=== PATIENT | male | born 1980 | race African-American/Black ===

== ENCOUNTER 2018-05-29 16:04 | Emergency (ER) | payer OTHER ==
[~2018-05-29] VITALS: Ht 175.3 cm; Wt 174.6 kg
[2018-05-29 17:00] VITALS: BP 161/101
[2018-05-29] MEDS ORDERED: NAPROXEN 500 MG TABLET PO STA (17:07)
[2018-05-29] MEDS ORDERED: HYDROcodone/APAP 5/325MG 1 TAB TABLET PO ONE (17:15)
[2018-05-29] MEDS ORDERED: AMOXICILLIN 250 MG CAPSULE. PO ONE (17:15)
[2018-05-29] MEDS ORDERED: AMOX500T PO (17:24)
[2018-05-29] MEDS ORDERED: TRAM50TA PO (17:24)
--- NOTE | 2018-05-29 17:24 | PHYS DOC ---
Adult General Chief Complaint Chief Complaint: DENTAL PROBLEM HPI HPI Patient is a 37 year old male with no significant medical history who presents today complaining of 10 out of 10 throbbing dental pain that began 2 weeks ago. Patient states he has been trying [id number] pain relievers with no relief. He states he does not have a dentist. Denies any fever or trismus. Review of Systems Review of Systems Constitutional: Denies fever or chills [] HENT: Reports dental pain. Denies nasal congestion or sore throat [] Musculoskeletal: Denies back pain or joint pain [] Integument: Denies rash or skin lesions [] Neurologic: Denies headache, focal weakness or sensory changes [] All other systems were reviewed and found to be within normal limits, except as documented in this note. Current Medications Current Medications Current Medications Medications (Trade) Dose Ordered Sig/Larissa Start Time Stop Time Status Last Admin Dose Admin Acetaminophen/ Hydrocodone Bitart (Lortab 5/325) 2 tab 1X ONCE 05/29/18 17:15 05/29/18 17:16 UNV Amoxicillin (Amoxil) 500 mg 1X ONCE 05/29/18 17:15 05/29/18 17:16 UNV Naproxen (Naprosyn) 500 mg 1X STAT 05/29/18 17:07 05/29/18 17:08 UNV Physical Exam Physical Exam Constitutional: Well developed, well nourished, no acute distress, non-toxic appearance. [] HENT: Normocephalic, atraumatic, bilateral external ears normal, oropharynx moist, no oral exudates, nose normal. [] Scattered dental caries throughout his teeth. Missing a couple teeth on the right upper gum. No dental abscess noted. Some of his teeth appear infected Skin: Warm, dry, no erythema, no rash. [] Back: No tenderness, no CVA tenderness. [] Extremities: No tenderness, no cyanosis, no clubbing, ROM intact, no edema. [] Neurologic: Alert and oriented X 3, normal motor function, normal sensory function, no focal deficits noted. [] Psychologic: Affect normal, judgement normal, mood normal. [] EKG EKG [] Radiology/Procedures Radiology/Procedures [] Course & Med Decision Making Course & Med Decision Making Pertinent Labs and Imaging studies reviewed. (See chart for details) Patient has infected dental caries. Will be discharged with amoxicillin and tramadol. Follow-up with the dentist from the list provided. [place] Disclaimer Dragon Disclaimer This electronic medical record was generated, in whole or in part, using a voice recognition dictation system. Departure Departure Impression: Primary Impression: Dentalgia Additional Impression: Infected dental caries Disposition: HOME, SELF-CARE Condition: STABLE Referrals: NO PCP (PCP) Follow-up with the dentist from the list provided in 1-2 weeks Patient Instructions: Dental Caries-Brief Additional Instructions: You were evaluated in the emergency room for dental infection and pain. Take the prescribed medications as ordered. Follow-up with the dentist as soon as possible. Scripts Amoxicillin (AMOXICILLIN) 500 Mg Tablet 1 TAB PO TID, #30 TAB Prov: MITUL JAMES APRN 05/29/18 Tramadol Hcl (TRAMADOL HCL) 50 Mg Tablet 50 MG PO Q6HRS PRN for PAIN, #30 TAB Prov: MITUL JAMES APRN 05/29/18 Problem Qualifiers MITUL JAMES APRN May 29, 2018 17:24
== END 2018-05-29 17:35 | disposition home or self-care (01) ==
LOC: ER 16:04
DX: K02.9 Dental caries, unspecified (principal)
CPT/HCPCS: 99284

== ENCOUNTER → 2021-01-31 | Outpatient (CLI) | payer MEDICAID ==
[~2021-01-31] MED LIST: AMOX500T PO; TRAM50TA PO
--- NOTE | 2021-01-31 14:46 | KCIC ---
XR CHEST 2V History: Reason: HOSPITAL DISCHARGE FOLLOW UP / Spl. Instructions: Pt diagnosed with an infection vkng und the heart. Pt wt is 494lbs / History: Comparison: None. Findings: Right lower lung masslike consolidation measures 2.6 x 3.5 cm. Bilateral linear and ill-defined opaci ties most prominent within the mid lungs. No pleural effusion. No pneumothorax. Left PICC with tip pr ojecting over the lower SVC. Enlarged cardiac size. Impression: 1. Right lower lung masslike consolidation with linear and ill-defined opacities, may represent pneu monia although malignancy is possible. Recommend comparison with prior imaging studies. If prior imag ing studies are not available, recommend CT with contrast to further evaluate. 2. Enlarged cardiac size, may represent cardiomegaly and/or pericardial effusion. Electronically signed by: Marin Crenshaw DO (01/31/2021 2:43 PM) [facility]
== END ==
LOC: KCIC 11:02
PROVIDERS: ATTEND Family Medicine
DX: Z09 Encounter for follow-up examination after completed treatment for conditions other than malignant neoplasm (principal); R91.1 Solitary pulmonary nodule; I51.7 Cardiomegaly
CPT/HCPCS: 71046